=== PATIENT | male | born 1975 | race Caucasian/White ===

== ENCOUNTER 2020-05-26 11:57 | Outpatient (CLI) | payer OTHER | END 2020-05-26 15:36 | disposition home or self-care (01) | LOC: LAB 11:57 | DX: U07.1 COVID-19 (principal); Z00.00 Encounter for general adult medical examination without abnormal findings ==

== ENCOUNTER 2021-08-14 08:00 | Outpatient (CLI) | payer OTHER | END 2021-08-14 08:30 | disposition home or self-care (01) | LOC: PPH VACUNA 08:00 | PROVIDERS: ATTEND Emergency Medicine Pediatric Emergency Medicine | DX: Z23 Encounter for immunization (principal) ==

== ENCOUNTER 2022-10-22 22:44 | Outpatient (CLI) | payer OTHER | END 2022-10-22 23:00 | disposition home or self-care (01) | LOC: LAB 22:44 | DX: Z20.828 Contact with and (suspected) exposure to other viral communicable diseases (principal); Z20.818 Contact with and (suspected) exposure to other bacterial communicable diseases ==